=== PATIENT | male | born 1960 | race Asian ===

== ENCOUNTER 2017-12-11 10:15 | Emergency (ER) | payer OTHER ==
[~2017-12-11] VITALS: Ht 167.6 cm; Wt 64.9 kg
--- NOTE | 2017-12-11 10:16 | NUR ---
PT BIBA BLS TO BED 5
[2017-12-11 10:22] VITALS: BP 142/110
--- NOTE | 2017-12-11 10:30 | NUR ---
RESTING WITH OU CLOSED, NO S/S RESP DISTRESS--NO GRIMACE NO MOAN SITTER AT BEDSIDE
--- NOTE | 2017-12-11 10:36 | NUR ---
PATIENT PRESENTS TO ED VIA EMS ON A 5150 DTS/DTO HYPERVERBAL . PT HYPERVERBALIZING PARANOIA, VISUAL HALLUCINATIONS] . DENIES N/V/D; SKIN IS PINK/WARM/DRY; ; LUNGS CLEAR BL; HR EVEN AND REGULAR; PT DENIES ANY FEVER, CP, SOB, OR COUGH AT THIS TIME; PATIENT STATES PAIN OF 0/10 AT THIS TIME; VSS; PATIENT POSITIONED FOR COMFORT; HOB ELEVATED; BEDRAILS UP X2; BED DOWN. ER MD MADE AWARE OF PT STATUS.
--- NOTE | 2017-12-11 11:00 | NUR ---
PT DECLINING NEED FOR RESTROOM USE AT THIS TIME
[2017-12-11] MEDS ORDERED: HALOPERIDOL 5 MG TAB PO SCH (11:25)
[2017-12-11] MEDS ORDERED: LORazepam 1 MG TAB PO ONE (11:25)
--- NOTE | 2017-12-11 11:30 | NUR ---
pt aggitated, unable to contract with pt. pt will not follow instructions. shouting attempting to get off [place]. declines need for restroom. [facility]
[2017-12-11 11:44] LABS: BASOPHILS % (AUTO) 0.1 % (0.0-2.0); HEMATOCRIT 38.6 % (36-52); HEMOGLOBIN 13.2 g/dL (12.0-18.0); LYMPHOCYTES # (AUTO) 0.9 K/uL (2.0-11.5); LYMPHOCYTES % (AUTO) 6.3 % (20.5-51.1); MEAN CORPUSCULAR HEMOGLOBIN 31 pg (27-31); MEAN CORPUSCULAR HGB CONC 34 g/dL (33-37); MEAN CORPUSCULAR VOLUME 90.1 fL (80-94); MONOCYTES # (AUTO) 1.1 K/uL (0.8-1.0); MONOCYTES % (AUTO) 7.6 % (1.7-9.3); NEUTROPHILS # (AUTO) 12.2 K/uL (1.8-7.7); PLATELET COUNT (AUTO) 232 K/uL (140-450); RED BLOOD CELL COUNT(AUTO) 4.28 MIL/uL (4.20-6.10); RED CELL DISTRIBUTION WIDTH 12.6 % (11.6-13.7); WHITE BLOOD COUNT (AUTO) 14.2 K/uL (4.8-10.8)
[2017-12-11] MEDS ORDERED: LORazepam 2 MG/ML VIAL IM ONE (11:55)
[2017-12-11] MEDS ORDERED: diphenhydrAMINE 50 MG/ML VIAL IM ONE (11:55)
[2017-12-11] MEDS ORDERED: HALOPERIDOL IM 5 MG/ML VIAL IM ONE (11:55)
[2017-12-11 11:59] LABS: ANION GAP 14.3 (8-16); CARBON DIOXIDE 25.4 mmol/L (21-32); CHLORIDE 105 mmol/L (98-107); CREATININE 1.2 mg/dL (0.7-1.3); GFR ARICAN-AMERICAN 81 mL/min (>90); GLUCOSE 146 mg/dL (74-106); POTASSIUM 4.7 mmol/L (3.5-5.1); SODIUM SERUM 140 mmol/L (136-145); UREA NITROGEN, BLOOD 22 mg/dL (7-18)
[2017-12-11 12:04] LABS: ALBUMIN 4.8 g/dL (3.4-5.0); ASPARTATE AMINOTRANSFERASE 23 U/L (15-37); TOTAL BILIRUBIN 0.9 mg/dL (0.0-1.0)
--- NOTE | 2017-12-11 12:10 | NUR ---
medicated as written---informed pt if he demonstrates no aggression violent behaviour we will remove restraints. pt has not agreed, continues to shout and demand to have restraints removed. sitter remains at bedside
--- NOTE | 2017-12-11 12:10 | NUR ---
BLE RESTRIANTS REMOVED
[2017-12-11 12:11] LABS: ACETAMINOPHEN < 0.5 ug/ml (10-30); SALICYLATE < 2.8 mg/dL (2.8-20.0)
--- NOTE | 2017-12-11 13:30 | NUR ---
BUE RESTRAINTS REMOVED---CONTINUES TO REST WITH OU CLOSED, NO S/S RESP DISTRESS NO AGGRESSIVE BEHAVIOUR CONTINUED THUS FAR
--- NOTE | 2017-12-11 13:32 | NUR ---
FRIEND EREN HARRIS CALLED ASKING OF PT. SHE REPORTS PT HX OF PARANOIA SCHIZOPHRENIA TAKES ZYPREXA 10MG QD UNSURE OF ALLERGY OF MEDS. ADDS PT SEEN AT [facility] YESTERDAY, TAKEN AFTER "NOT FEELING HIMSELF AT NEW JOB". MARCOS (SISTER) [phone]; MOM [phone]
--- NOTE | 2017-12-11 13:35 | NUR ---
PT RESTING WITH OU CLOSED, NO S/S RESP DISTRESS--NO GRIMACE NO MOAN WILL CONTINUE TO DIRECT OBSERVE LEFT A VOICE MESSAGE TO MARCOS PT'S SISTER
[2017-12-11 15:03] LABS: APPEARANCE,URINE CLEAR (CLEAR); BILIRUBIN,URINE NEGATIVE (NEGATIVE); BLOOD, URINE NEGATIVE (NEGATIVE); LEUKOCYTE ESTERASE ,URINE NEGATIVE (NEGATIVE); NITRITE, URINE NEGATIVE (NEGATIVE); UGLUCOSE 2+ (NEGATIVE)
[2017-12-11 15:09] LABS: BARBITURATE, URINE NEG. ng/ml (NEG <=200); BENZODIAZEPINE, URINE NEG. ng/mL (NEG <=200); CANNABINOID, URINE NEG. ng/mL (NEG <=50); COCAINE, URINE NEG. ng/mL (NEG <=300); OPIATE, URINE NEG. ng/mL (NEG <=2000); PHENCYCLIDINE SCREEN,URINE NEG. ng/mL (NEG <=25)
[2017-12-11 16:03] LABS: COLOR,URINE YELLOW (YELLOW)
--- NOTE | 2017-12-11 16:04 | NUR ---
PT IS NOW MEDICALLY CLEARED ACCORDING TO DR GRUBER
--- NOTE | 2017-12-11 16:46 | NUR ---
CONI INTAKE PERSON WITH [facility] SPOKE WITH ME---TOOK HISTORY OF PT AND IMMEDIATE PROBLEM, STATED THEY WILL CALL US BACK
--- NOTE | 2017-12-11 16:51 | NUR ---
A REQUEST FOR ASSISTANCE WITH PLACEMENT REQUESTED. PLACEMENT PACKET RECEIVED VIA FAX. I HAVE REACHED OUT TO [facility] AND THEY HAVE REQUESTED TO REVIEW PACKET. A PACKET AND DIRECT CONTACT INFO TO ER PROVIDED.
--- NOTE | 2017-12-11 17:47 | NUR ---
SITTER REMAINS AT BEDSIDE---PT CONTINUES TO REST WITH OU CLOSED, NO SHOUTING , NO GRIMACE, NO MOAN --- PT'S SISTER MARCOS CALLED ASKED OF PT---NOT SURE IF PT HAS ANY ALLERGIES TO MEDICATIONS. ASKED TO BE CALLED WHEN TRANSFERED
[2017-12-11] MEDS ORDERED: DEXT 5% / NACL 0.45% 1,000 ML IV SCH (17:58)
[2017-12-11] MEDS ORDERED: LORazepam 2 MG/ML VIAL IM/IVP PRN (18:00)
[2017-12-11] MEDS ORDERED: DOCUSATE SODIUM 100 MG GELCAP PO PRN (18:00)
[2017-12-11] MEDS ORDERED: ACETAMINOPHEN 325 MG TAB PO PRN (18:00)
[2017-12-11] MEDS ORDERED: ZOLPIDEM 5 MG TAB PO PRN (18:00)
[2017-12-11] MEDS ORDERED: ONDANSETRON 4 MG/2 ML VIAL IM/IVP PRN (18:00)
--- NOTE | 2017-12-11 18:05 | NUR ---
PLACEMENT PACKETS SENT TO [facility] ([facility]) AND [facility]. BOTH FACILITIES HAVE BEDS AVAILABLE AND WILL BE CALLING THE ED DIRECTLY.
--- NOTE | 2017-12-11 18:12 | NUR ---
CXR AT BEDSIDE
--- NOTE | 2017-12-11 18:24 | NUR ---
CALLED [facility] IN TELE FOR ADMISSION BED, NONE GIVEN AT THIS TIME. [facility] WILL BE CALLED FOR FURTHER INFO.
[2017-12-11 18:32] LABS: PROTHROMBIN TIME 9.9 secs (10.8-13.4)
[2017-12-11 18:42] LABS: MAGNESIUM 1.8 mg/dL (1.8-2.4); THYROID STIMULATING HORMONE 1.16 uIU/mL (0.34-3.74)
--- NOTE | 2017-12-11 18:54 | NUR ---
RESTING AT BEDSIDE---NO CHANGE IN BEHAVIOR
--- NOTE | 2017-12-11 19:12 | NUR ---
[facility] WAITING TO REVIEW PACKET
--- NOTE | 2017-12-11 19:15 | NUR ---
[facility] INTAKE TOOK HISTORY AND HAS ACCEPTED PT UNDER WE ARE CLEARED TO ARRANGE TRANSPORT---
--- NOTE | 2017-12-11 20:10 | NUR ---
Patient Tranfers to outside Facility Physician: DR PEREZ Location:[facility]
--- NOTE | 2017-12-11 20:11 | NUR ---
PT TAKEN BY [facility] TO [facility]
[2017-12-11 20:16] VITALS: BP 123/81
[2017-12-12 06:17] LABS: T4 (THYROXINE) 7.6 ug/dL (4.5-12.0)
== END 2017-12-11 20:11 | disposition designated cancer center or children's hospital (05) ==
LOC: MED 10:15
DX: Z04.6 Encounter for general psychiatric examination, requested by authority (principal); F20.9 Schizophrenia, unspecified; F23 Brief psychotic disorder; R94.31 Abnormal electrocardiogram [ECG] [EKG]; R45.850 Homicidal ideations; R45.851 Suicidal ideations
CPT/HCPCS: 36415; 71045; 80053; 80305; 81003; 83036; 83735; 83880; 84100; 84436; 84443; 85025; 85610; 85730; 93005; 96372; 99285; G0480; G0482; J1200; J1630; J2060; Q0092